=== PATIENT | female | born 1995 | race Two or more races ===

== ENCOUNTER 2017-03-09 16:46 | Emergency (ER) | payer MEDICARE, MEDICAID ==
--- NOTE | 2017-03-09 17:19 | ED Physician Chart ---
ED Chief Complaint/HPI - Patient Information Date Seen:: 03/09/17 Time Seen:: 17:07 Chief Complaint:: Hypoglycemia History of Present Illness:: 22 yo female with a history of mental retardation and DM II, took metformin, Jenuvia, and glipizide all at once with lunch. A few hours later, she felt weakness while she was waiting in her physician's office. Blood glucose was found to be low at 55 and orange juice was given. She was brought by her caregiver to the ER for further management. At ER, her blood glucose was 77 and HR 105. ED Review of Systems - Review of Systems General/Constitutional: No fever, Weakness Skin: No bruising Head: No headache Eyes: No pain ENT: No nasal drainage Neck: No neck pain Cardio Vascular: No chest pain Pulmonary: No SOB GI: No nausea, No vomiting Musculoskeletal: No bone or joint pain Neurological: No focal symptoms ED Past Medical History - Past Medical History Past Medical History: DM, Other (Mental retardation) Social History: Non Smoker, No Alcohol, No Drug Use Surgical History: None Family Medical History - Family Member Maternal History Unknown: Yes ED Physical Exam - Physical Examination General/Constitutional: Awake Head: Atraumatic Eyes: PERRL Skin: No ecchymosis ENMT: Nasal exam nl Neck: No nuchal rigidity Respiratory: No Wheeze/Rhonchi/Rales Cardio Vascular: RRR, No murmur, gallop, rubs, NL S1 S2 GI: No tenderness/rebounding/guarding Extremities: normal strength in all extremities Neuro/Psych: No focal deficits ED Assessment - Assessment General Assessment: DM II with hypoglycemia due to overdose of diabetic medication Microcytic anemia Assessment/Comments:: CBC, CMP UA D50w 50ml IVP D/c home F/u PCP or return to ER if symptoms worsen ED Septic Shock - . Is Septic Shock (SBP<90, OR Lactate>4 mmol\L) present?: No ED Reassessment (Disposition) - Reassessment Reassessment Condition:: Improved - Patient Disposition Discharge/Transfer:: Home ED Discharge Plan - Patient Disposition Admit/Discharge/Transfer: PT DISCHARGED HOME Condition at Disposition: Improved Instructions: Hypoglycemia (Low Blood Sugar), Blood Sugar Monitoring, Adult
[2017-03-09] MEDS ORDERED: Dextrose 50% 50 mL Abboject IVP STA (17:20)
[2017-03-09] MEDS ORDERED: Dextrose 50% 50 mL Abboject IVP ONE (17:21)
[2017-03-09 17:50] LABS: URINE MICROSCOPIC INDICATED? YES; URINE SOURCE RANDOM
[2017-03-09 17:51] LABS: ALBUMIN 4.9 gm/dL (3.7-5.3); ALKALINE PHOSPHATASE 47 U/L (34-104); BILIRUBIN,TOTAL 0.3 mg/dL (0.3-1.0); BUN - UREA NITROGEN 10 mg/dL (7-25); CALCIUM SERUM 9.4 mg/dL (8.6-10.3); CARBON DIOXIDE 28.5 mEq/L (21.0-31.0); CHLORIDE 102 mEq/L (98-107); CREATININE - SERUM 0.6 mg/dL (0.6-1.2); GFR AFRICAN-AMERICAN > 60.0 ml/min (>90); GFR NON AFRICAN-AMERICAN > 60.0 ml/min; GLUCOSE 89 mg/dL (70-105); POTASSIUM SERUM 3.5 mEq/L (3.5-5.1); SGOT 40 U/L (13-39); SGPT/ALT 48 U/L (7-52); SODIUM SERUM 139 mEq/L (136-145); TOTAL PROTEIN,SERUM 7.4 gm/dL (6.0-8.3)
[2017-03-09 17:53] LABS: URINE BILIRUBIN NEGATIVE (NEGATIVE); URINE BLOOD LARGE (NEGATIVE); URINE GLUCOSE (UA) NEGATIVE (NEGATIVE); URINE KETONE NEGATIVE (NEGATIVE); URINE LEUKOCYTE ESTERASE NEGATIVE (NEGATIVE); URINE NITRATE NEGATIVE (NEGATIVE); URINE PROTEIN NEGATIVE (NEGATIVE); URINE UROBILINOGEN 0.2 E.U./dL (0.2 - 1.0)
[2017-03-09 17:53] LABS: % LYMPHOCYTES 32.3 % (20.0-50.0); % MONOCYTES 7.6 % (2.0-10.0); % NEUTROPHILS 58.1 % (40.0-80.0); EOSINOPHILE ABSOLUTE 0.2 Th/cmm (0.1-0.4); HEMATOCRIT 33.8 % (41.0-60); HEMOGLOBIN 11.3 gm/dL (12-16); LYMPHOCYTE ABSOLUTE 2.6 Th/cmm (1.5-3.0); MEAN CELL VOLUME 77.7 fl (81-100); MEAN CORPUSCULAR HGB CONC 33.4 pg (28.0-36.0); MEAN PLATELET VOLUME 8.8 fl; MONOCYTE ABSOLUTE 0.6 Th/cmm (0.3-1.0); NEUTROPHILE ABSOLUTE 4.8 Th/cmm (1.8-8.0); PLATELET COUNT 353 Th/cmm (150-400); RED BLOOD COUNT 4.35 Mil/cmm (3.80-5.10); RED CELL DISTRIBUTION WIDTH 14.2 % (11.5-20.0); WHITE BLOOD COUNT 8.2 Th/cmm (4.8-10.8)
[2017-03-09 18:09] LABS: URINE CLARITY CLEAR (CLEAR); URINE COLOR YELLOW
[2017-03-09 18:12] LABS: URINE RBC 25-50 /hpf (0-5); URINE WBC NONE SEEN /hpf (0-5)
[2017-03-09 18:13] LABS: URINE BACTERIA NONE SEEN /hpf (NONE SEEN); URINE EPITHELIAL CELLS FEW /lpf (FEW)
== END 2017-03-09 19:01 | disposition short-term general hospital (02) ==
LOC: ER 16:46
DX: E16.2 Hypoglycemia, unspecified (principal); R53.1 Weakness
CPT/HCPCS: 36415-UA; 80053-TC; 81001-TC; 82948-90; 85025-TC; J7799; Z7502